=== PATIENT | male | born 1950 | race Caucasian/White ===

== ENCOUNTER → 2019-03-29 | Outpatient (CLI) | payer MEDICARE, OTHER ==
[~2019-03-29] MED LIST: ASPI81CH PO; ESCI10 PO; LEVETIRACETAM750 MG PO; MELO7.5 PO
== END | disposition home or self-care (01) ==
LOC: PLD 13:45 → LAB SHORT 13:45
DX: D48.9 Neoplasm of uncertain behavior, unspecified (principal)
CPT/HCPCS: 88305

== ENCOUNTER → 2022-05-04 | Outpatient (CLI) | payer MEDICARE | LOC: LAB SHORT 15:37 → LAB 15:37 | DX: L01.01 Non-bullous impetigo (principal) | CPT/HCPCS: 87070; 87077; 87186; 87205 ==

== ENCOUNTER 2022-05-23 16:06 | Emergency (ER) | payer MEDICARE ==
[~2022-05-23] VITALS: Ht 172.7 cm; Wt 68.0 kg
[2022-05-23 17:02] LABS: BASOPHILS ABSOLUTE AUTO 0.04 K/mm3 (0.00-0.23); BASOPHILS PERCENT AUTO 0 % (0-2); EOSINOPHILS ABSOLUTE AUTO 0.03 K/mm3 (0.00-0.68); EOSINOPHILS PERCENT AUTO 0 % (0-6); Hematocrit 35.9 % (37.0-53.0); Hemoglobin 12.2 g/dL (13.5-17.5); IMMATURE GRAN ABSOLUTE AUTO 0.05 K/mm3 (0.00-0.10); IMMATURE GRAN PERCENT AUTO 0 % (0-1); LYMPHOCYTES ABSOLUTE AUTO 1.03 K/mm3 (0.84-5.20); LYMPHOCYTES PERCENT AUTO 9 % (21-46); MONOCYTES ABSOLUTE AUTO 0.38 K/mm3 (0.16-1.47); MONOCYTES PERCENT AUTO 3 % (4-13); Mean Corpuscular HGB 30.7 pg (26.0-34.0); Mean Corpuscular Volume 90 fL (80-100); Mean Platelet Volume 10.8 fL (9.1-12.4); NEUTROPHILS ABSOLUTE AUTO 9.82 K/mm3 (1.96-9.15); NEUTROPHILS PERCENT AUTO 87 % (41-73); Platelet Count 214 K/mm3 (150-400); RDW Coefficient Variation 12.7 % (11.7-14.2); RDW Standard Deviation 41.7 fL (35.1-46.3); Red Blood Cell Count 3.98 M/mm3 (4.30-5.90); White Blood Cell Count 11.35 K/mm3 (4.00-11.30)
[2022-05-23 17:38] LABS: Albumin, Blood 3.4 g/dL (3.4-5.0); Bilirubin, Total 0.3 mg/dL (0.1-1.0); Bun/Creatinine Ratio 12.1 (12.0-20.0); Calcium, Blood 8.8 mg/dL (8.5-10.1); Creatinine, Blood 1.32 mg/dL (0.60-1.20); Globulin, Blood 3.3 g/dL (2.2-4.0); Total Protein, Blood 6.7 g/dL (6.4-8.2)
[2022-05-23 20:31] LABS: Source, Urine Clean Catch
[2022-05-23 20:34] LABS: Appearance, Urine Clear (Clear); Bilirubin, Urine Neg (Neg); Blood, Urine 5+ (Neg); Color, Urine Yellow (P-Yellow); Glucose Qualitative, Urine Neg (Neg); Ketones, Urine 1+ (Neg); Leukocyte Esterase, Urine Neg (Neg); Nitrite, Urine Neg (Neg); Protein, Urine 1+ (Neg); Specific Gravity, Urine 1.025 (1.003-1.022); Urobilinogen, Urine NORM (Normal)
[2022-05-23 20:48] LABS: Bacteria Few /hpf; Squamous Epithelial Cells Rare /hpf (Few); White Blood Cells, Urine 0-2 /hpf (0-5)
== END 2022-05-23 21:16 | disposition home or self-care (01) ==
LOC: ER 16:06
PROVIDERS: Student in an Organized Health Care Education/Training Program
DX: N13.2 Hydronephrosis with renal and ureteral calculous obstruction (principal); Z79.82 Long term (current) use of aspirin
CPT/HCPCS: 74176; 80053; 81001; 83690; 85025; J1885; J2405

== ENCOUNTER 2024-07-27 14:40 | Emergency (ER) | payer MEDICARE, OTHER ==
[~2024-07-27] VITALS: Ht 170.2 cm; Wt 70.3 kg
[2024-07-27 15:07] VITALS: BP 154/92
[2024-07-27] MEDS ORDERED: OxyCODONE 5 mg/Acetamin 325 mg TABLET PO ONE (15:45)
[2024-07-27] MEDS ORDERED: Amoxicillin/Clavulanate K 875 MG Tab PO ONE (17:35)
[2024-07-27] MEDS ORDERED: AMOCLA875 PO (17:57)
== END 2024-07-27 18:12 | disposition home or self-care (01) ==
LOC: ER 14:40
DX: S68.123A Partial traumatic metacarpophalangeal amputation of left middle finger, initial encounter (principal); S68.125A Partial traumatic metacarpophalangeal amputation of left ring finger, initial encounter; Z79.82 Long term (current) use of aspirin; Z79.899 Other long term (current) drug therapy; W31.89XA Contact with other specified machinery, initial encounter
CPT/HCPCS: 20600; 73130; 99283-25; A9270

== ENCOUNTER 2024-07-31 09:14 | Day surgery (SDC) | payer MEDICARE, OTHER ==
[~2024-07-31] VITALS: Ht 170.2 cm; Wt 70.1 kg
[~2024-07-31 09:14] MED LIST changes: +AMOCLA875 PO; +Lactated Ringer's 1,000 ML IV ONE; +NS 0 ML IV ONE
[2024-07-31] MEDS ORDERED: DOXAZOSIN MESYLA4 M2 PO (09:58)
[2024-07-31] MEDS ORDERED: Lactated Ringer's 1,000 ML IV ONE (10:06)
--- NOTE | 2024-07-31 10:24 | NUR ---
07/31/24 1024 Saad White, BLOCK TIMEOUT 1023 GIVEN 10CC ON LEFT HAND
[2024-07-31] MEDS ORDERED: Acetaminophen 500 MG Tab ONE (10:30)
[2024-07-31] MEDS ORDERED: CeFAZolin Sodium 2,000 MG VIAL ONE (10:39)
--- NOTE | 2024-07-31 12:33 | NUR ---
07/31/24 1233 Jovon Horner SOME MILD TO MODERATE SWELLING NOTED ON PT'S HAND AND FINGERS IN SDU . CAPILLARY REFILL WNL, NO DISCOLORATION. SWELLING DID NOT APPEAR TO WORSEN DURING TIME IN SDU. PT WAS INSTRUCTED TO MONITOR SWELLING AT HOME AND REPORT WORSENING SWELLING, DISCOLORATION, NUMBNESS, OR WORSENING PAIN TO DR. BAUTISTA. HE WAS ALSO INSTRUCTED TO ICE AND ELEVATE. PT WAS INSTRUCTED TO MONITOR B/P AT HOME, AND FOLLOW UP WITH PCP NEEDED .
[2024-07-31 12:46] VITALS: BP 128/72
== END 2024-07-31 12:10 | disposition home or self-care (01) ==
LOC: ORSCSDS 09:14
PROVIDERS: Orthopaedic Surgery
PROC: 0X6R0Z3 Detachment at Left Middle Finger, Low, Open Approach (ICD-10-PCS; principal; 2024-07-31 10:45)
DX: S62.633A Displaced fracture of distal phalanx of left middle finger, initial encounter for closed fracture (principal); W31.2XXA Contact with powered woodworking and forming machines, initial encounter; Z79.899 Other long term (current) drug therapy
CPT/HCPCS: 88305; A9270; J0690; J7040; J7120

== ENCOUNTER 2025-01-18 16:09 | Emergency (ER) | payer MEDICARE, OTHER ==
[~2025-01-18] VITALS: Ht 170.2 cm; Wt 70.3 kg
[~2025-01-18 16:09] MED LIST changes: +DOXAZOSIN MESYLA4 M2 PO; -Lactated Ringer's 1,000 ML IV ONE; -NS 0 ML IV ONE
[2025-01-18 16:16] VITALS: BP 167/94
[2025-01-18 17:13] LABS: Source, Urine Clean Catch
[2025-01-18 17:46] LABS: Bilirubin, Urine Neg (Neg); Glucose Qualitative, Urine Neg (Neg); Ketones, Urine Neg (Neg); Leukocyte Esterase, Urine Neg (Neg); Protein, Urine Neg (Neg); Specific Gravity, Urine 1.015 (1.003-1.022); Urobilinogen, Urine NORM (Normal)
[2025-01-18 19:12] LABS: Color, Urine Pale Yellow (P-Yellow)
[2025-01-18] MEDS ORDERED: ASPERFLEX1 EACH TOP (19:31)
[2025-01-18] MEDS ORDERED: Robaxin750 MG PO (19:31)
== END 2025-01-18 19:40 | disposition home or self-care (01) ==
LOC: ER 16:09
PROVIDERS: Physician Assistant
DX: M62.830 Muscle spasm of back (principal); M19.90 Unspecified osteoarthritis, unspecified site; Z79.899 Other long term (current) drug therapy; Z79.2 Long term (current) use of antibiotics
CPT/HCPCS: 76770; 81003; 99284-25; A9270